=== PATIENT | male | born 1975 | race Caucasian/White ===

== ENCOUNTER 2020-12-16 22:21 | Observation (INO) ==
[2020-12-16] MEDS ORDERED: 0.9 % Sodium Chloride 1,000 ML IVC ONE (22:47)
[2020-12-16 23:05] LABS: Basophils # 0.1 K/mcL (0.0-0.2); Eosinophils # 0.2 K/mcL (0.0-0.6); Eosinophils % 1.6 %; Hemoglobin 15.2 g/dL (12.9-16.9); Immature Granulocytes % 0.4 % (0-4); Lymphocytes # 4.4 K/mcL (0.6-4.6); Lymphocytes % 40.5 %; Mean Corpuscular HGB Conc 33.8 g/dL (31.6-35.5); Mean Corpuscular Hemoglobin 35.3 pg (28.0-33.3); Mean Corpuscular Volume 104.4 fL (83.0-100.0); Mean Platelet Volume 9.4 fL (9.4-12.4); Monocytes # 0.8 K/mcL (0.0-1.3); Neutrophils # 5.4 K/mcL (1.6-8.9); Platelet Count 314 K/mcL (140-400); Red Blood Count 4.31 M/mcL (4.19-5.50); Red Cell Distribution Width 12.5 % (11.5-14.5); Segmented Neutrophils % 49.5 %; White Blood Count 10.8 K/mcL (4.3-11.1)
[2020-12-16 23:10] LABS: Bilirubin,Urine Negative (Negative); Blood,Urine Negative (Negative); Clarity,Urine Clear (Clear); Color,Urine Colorless (Yellow); Glucose,Urine (UA) Normal (Normal); Ketones,Urine Negative (Negative); Leukocyte Esterase,Urine Negative (Negative); Nitrite,Urine Negative (Negative); Protein,Urine Negative (Neg-Trace); Specific Gravity,Urine 1.007 (1.010-1.025); Urobilinogen,Urine Normal (Normal)
[2020-12-16 23:19] LABS: Amphetamine Screen,Urine Negative ng/mL (Cutoff=1000); Barbiturate Screen,Urine Negative ng/mL (Cutoff=200); Benzodiazepines Screen,Urine Negative ng/mL (Cutoff=200); Cannabinoid Screen,Urine Negative ng/mL (Cutoff = 50); Cocaine Screen,Urine Negative ng/mL (Cutoff= 300); Opiate Screen,Urine Negative ng/mL (Cutoff=300); Phencyclidine Screen,Urine Negative ng/mL (Cutoff=25)
[2020-12-16 23:23] LABS: Estimated Average Glucose 91 mg/dl; Hemoglobin A1C 4.8 %
[2020-12-16 23:30] LABS: Acetaminophen < 10 mcg/mL (10-20); BUN/Creatinine Ratio 10 (6-26); Blood Urea Nitrogen 9 mg/dL (6-20); Calcium 9.2 mg/dL (8.6-10.3); Carbon Dioxide 24 mEq/L (23-29); Chloride 102 mEq/L (98-107); Chol/HDL Ratio 2.9 (0-4.9); Cholesterol 277 mg/dL (< 200); Ethanol 257 mg/dL (Less than 10); Glucose 141 mg/dL (70-105); HDL Cholesterol 95 mg/dL (40-59); LDL Cholesterol,Calculated 151 mg/dL (< 100); Osmolality,Calculated 295 (280-300); Potassium 3.6 mEq/L (3.5-5.1); Salicylate < 2.5 mg/dL (15.0-30.0); Sodium 142 mEq/L (136-145); Triglycerides 154 mg/dL (< 150); eGFR For African Americans > 60 (> 60); eGFR For Non-African Americans > 60 (> 60)
[2020-12-17] MEDS ORDERED: Naloxone 0.4 MG/ML INJ IVP PRN (00:21)
[2020-12-17] MEDS ORDERED: Ondansetron 4 MG/2 ML VIAL IVP PRN (00:21)
[2020-12-17] MEDS ORDERED: *HR* LORazepam 2 MG/ML VIAL IVP PRN ×3 (00:21)
[2020-12-17] MEDS ORDERED: Nicotine 2 MG GUM BC PRN (01:22)
[2020-12-17] MEDS: Thiamine (B-1) 100 MG, Folic Acid 1 MG, MVI, adult with vitamin K 10 ML in 0.9 % Sodi... IVPB SCH (01:57)
[2020-12-17] MEDS: *HR* Enoxaparin 40 MG/0.4 ML SYRINGE SQ SCH ×2 (02:04→19:55)
[2020-12-17 02:10] LABS: Basophils # 0.1 K/mcL (0.0-0.2); Eosinophils # 0.2 K/mcL (0.0-0.6); Eosinophils % 1.6 %; Hematocrit 41.2 % (37.5-50.1); Hemoglobin 13.9 g/dL (12.9-16.9); Immature Granulocytes % 0.4 % (0-4); Immature Platelets 5.4 % (1.1-6.1); Lymphocytes # 4.6 K/mcL (0.6-4.6); Lymphocytes % 45.5 %; Mean Corpuscular HGB Conc 33.7 g/dL (31.6-35.5); Mean Corpuscular Hemoglobin 35.5 pg (28.0-33.3); Mean Corpuscular Volume 105.4 fL (83.0-100.0); Mean Platelet Volume 10.3 fL (9.4-12.4); Monocytes # 0.7 K/mcL (0.0-1.3); Monocytes % 7.1 %; Neutrophils # 4.5 K/mcL (1.6-8.9); Platelet Count 229 K/mcL (140-400); Red Blood Count 3.91 M/mcL (4.19-5.50); Red Cell Distribution Width 12.6 % (11.5-14.5); Segmented Neutrophils % 44.4 %; White Blood Count 10.1 K/mcL (4.3-11.1)
[2020-12-17 02:18] LABS: INR 0.9; Prothrombin Time 10.6 Seconds (9.4-12.1)
[2020-12-17 02:22] LABS: Activated Partial Thrombo Time 25.2 Seconds (26.0-36.0)
[2020-12-17 02:23] LABS: Phosphorous 2.6 mg/dL (2.7-4.5)
[2020-12-17 02:25] LABS: Alanine Aminotransferase 41 Units/L (7-52); Albumin 4.2 g/dL (3.5-5.7); Albumin/Globulin Ratio 1.6 (1.1-2.2); Alkaline Phosphatase 70 Units/L (34-104); Aspartate Amino Transferase 38 Units/L (13-39); BUN/Creatinine Ratio 9 (6-26); Bilirubin,Direct 0.1 mg/dL (0.0-0.2); Bilirubin,Indirect 0.2 mg/dL (0.0-1.0); Bilirubin,Total 0.3 mg/dL (0.3-1.0); Blood Urea Nitrogen 7 mg/dL (6-20); Calcium 8.6 mg/dL (8.6-10.3); Carbon Dioxide 23 mEq/L (23-29); Chloride 104 mEq/L (98-107); Globulin 2.6 g/dL (2.4-3.5); Glucose 101 mg/dL (70-105); Osmolality,Calculated 288 (280-300); Potassium 3.6 mEq/L (3.5-5.1); Sodium 140 mEq/L (136-145); Total Protein 6.8 g/dL (6.4-8.9); eGFR For African Americans > 60 (> 60); eGFR For Non-African Americans > 60 (> 60)
[2020-12-17 02:30] LABS: Magnesium 2.2 mg/dL (1.6-2.6)
[2020-12-17] MEDS: Nicotine 21 MG PATCH.TD24 TD SCH (09:33)
[2020-12-17] MEDS ORDERED: Naltrexone HCl 50 MG TABLET PO SCH (11:45)
[2020-12-18] MEDS: Nicotine 21 MG PATCH.TD24 TD SCH (08:35)
[2020-12-18] MEDS: Thiamine (B-1) 100 MG, Folic Acid 1 MG, MVI, adult with vitamin K 10 ML in 0.9 % Sodi... IVPB SCH (16:51)
[2020-12-18] MEDS: *HR* Enoxaparin 40 MG/0.4 ML SYRINGE SQ SCH (20:10)
[2020-12-19] MEDS: Nicotine 21 MG PATCH.TD24 TD SCH (08:35)
[2020-12-19] MEDS: Thiamine (B-1) 100 MG, Folic Acid 1 MG, MVI, adult with vitamin K 10 ML in 0.9 % Sodi... IVPB SCH (17:00)
[2020-12-19] MEDS: *HR* Enoxaparin 40 MG/0.4 ML SYRINGE SQ SCH (20:31)
[2020-12-20] MEDS: Nicotine 21 MG PATCH.TD24 TD SCH (09:27)
[2020-12-21] MEDS: *HR* Enoxaparin 40 MG/0.4 ML SYRINGE SQ SCH (05:20)
[2020-12-21] MEDS: Nicotine 21 MG PATCH.TD24 TD SCH (08:38)
[2020-12-21 10:36] VITALS: BP 129/89
== END 2020-12-21 14:37 ==
LOC: EMEROOARM 22:21 → 3BNU 22:21 → SUATTDRO 12-17 00:12 → 3BNU 12-17 00:45
PROVIDERS: ADMIT Family Medicine; ATTEND Registered Nurse

== ENCOUNTER 2020-12-21 14:29 | Inpatient (IN) ==
[2020-12-21] MEDS ORDERED: *HR* LORazepam 1 MG TABLET PO PRN (14:34)
[2020-12-21] MEDS ORDERED: *HR* LORazepam 2 MG/ML VIAL IM PRN (14:34)
[2020-12-21] MEDS ORDERED: Mag Hydrox/Al Hydrox/Simeth 30 ML UDC PO PRN (14:34)
[2020-12-21] MEDS ORDERED: Haloperidol Lactate 5 MG/ML VIAL IM PRN (14:34)
[2020-12-21] MEDS ORDERED: MOM Conc 10 ML UD.LIQ PO PRN (14:34)
[2020-12-21] MEDS ORDERED: haloperidoL 5 MG TABLET PO PRN (14:34)
[2020-12-21] MEDS: hydrOXYzine pamoate 25 MG CAPSULE PO PRN ×2 (16:07→20:11)
[2020-12-21] MEDS: Acetaminophen 325 MG TABLET PO PRN (20:10)
[2020-12-21] MEDS: traZODone 50 MG TABLET PO PRN (20:11)
[2020-12-22] MEDS: hydrOXYzine pamoate 25 MG CAPSULE PO PRN ×2 (10:04→18:15)
[2020-12-22] MEDS: Nicotine 21 MG PATCH.TD24 TD SCH (10:04)
[2020-12-22] MEDS: Folic Acid 1 MG TABLET PO SCH (11:18)
[2020-12-22] MEDS: Thiamine (B-1) 100 MG TABLET PO SCH (11:18)
[2020-12-22] MEDS: traZODone 50 MG TABLET PO PRN (21:42)
[2020-12-23] MEDS: hydrOXYzine pamoate 25 MG CAPSULE PO PRN ×4 (00:56→20:05)
[2020-12-23] MEDS: Thiamine (B-1) 100 MG TABLET PO SCH (09:07)
[2020-12-23] MEDS: Nicotine 21 MG PATCH.TD24 TD SCH (09:08)
[2020-12-23] MEDS: Folic Acid 1 MG TABLET PO SCH (09:08)
[2020-12-23] MEDS: Naltrexone HCl 50 MG TABLET PO SCH (15:25)
[2020-12-23] MEDS: traZODone 50 MG TABLET PO SCH (20:03)
[2020-12-23] MEDS: Acetaminophen 325 MG TABLET PO PRN (20:04)
[2020-12-24] MEDS: Folic Acid 1 MG TABLET PO SCH (08:02)
[2020-12-24] MEDS: Nicotine 21 MG PATCH.TD24 TD SCH (08:03)
[2020-12-24] MEDS: Naltrexone HCl 50 MG TABLET PO SCH (08:03)
[2020-12-24] MEDS: Thiamine (B-1) 100 MG TABLET PO SCH (08:03)
[2020-12-24] MEDS: hydrOXYzine pamoate 25 MG CAPSULE PO PRN ×3 (08:09→18:12)
[2020-12-24 17:47] LABS: Adenovirus Not Detected (Not Detect); Coronavirus 229E Not Detected (Not Detect); Coronavirus HKU1 Not Detected (Not Detect); Coronavirus NL63 Not Detected (Not Detect); Coronavirus OC43 Not Detected (Not Detect); Human Metapneumovirus Not Detected (Not Detect); Human Rhinovirus/Enterovirus Not Detected (Not Detect); Influenza A Subtype 2009 H1 Not Detected (Not Detect); Influenza B Not Detected (Not Detect); Parainfluenza Virus 1 Not Detected (Not Detect); SARS-CoV-2 Not Detected (Not Detect)
[2020-12-24 17:48] LABS: Bordetella Pertussis Not Detected (Not Detect); Chlamydophila pneumoniae Not Detected (Not Detect); Mycoplasma pneumoniae Not Detected (Not Detect); Parainfluenza Virus 2 Not Detected (Not Detect); Parainfluenza Virus 3 Not Detected (Not Detect); Parainfluenza Virus 4 Not Detected (Not Detect); Respiratory Syncytial Virus Not Detected (Not Detect)
[2020-12-24] MEDS: traZODone 50 MG TABLET PO SCH (20:12)
[2020-12-25] MEDS: hydrOXYzine pamoate 25 MG CAPSULE PO PRN ×2 (07:11→12:01)
[2020-12-25] MEDS: Nicotine 21 MG PATCH.TD24 TD SCH (08:09)
[2020-12-25] MEDS: Naltrexone HCl 50 MG TABLET PO SCH (08:10)
[2020-12-25] MEDS: Thiamine (B-1) 100 MG TABLET PO SCH (08:12)
[2020-12-25] MEDS: Folic Acid 1 MG TABLET PO SCH (08:21)
[2020-12-25] MEDS: traZODone 50 MG TABLET PO SCH (20:22)
[2020-12-26] MEDS: hydrOXYzine pamoate 25 MG CAPSULE PO PRN ×3 (07:31→18:05)
[2020-12-26] MEDS: Naltrexone HCl 50 MG TABLET PO SCH (08:48)
[2020-12-26] MEDS: Folic Acid 1 MG TABLET PO SCH (08:49)
[2020-12-26] MEDS: Thiamine (B-1) 100 MG TABLET PO SCH (08:49)
[2020-12-26] MEDS: Nicotine 21 MG PATCH.TD24 TD SCH (08:50)
[2020-12-26] MEDS: traZODone 50 MG TABLET PO SCH (20:04)
[2020-12-27] MEDS: Folic Acid 1 MG TABLET PO SCH (08:14)
[2020-12-27] MEDS: Thiamine (B-1) 100 MG TABLET PO SCH (08:15)
[2020-12-27] MEDS: Naltrexone HCl 50 MG TABLET PO SCH (08:15)
[2020-12-27] MEDS: hydrOXYzine pamoate 25 MG CAPSULE PO PRN ×2 (08:15→13:33)
[2020-12-27] MEDS: Nicotine 21 MG PATCH.TD24 TD SCH (08:17)
[2020-12-27 09:23] VITALS: BP 120/85
== END 2020-12-27 13:55 | DRG 751 ==
LOC: 1ANU 14:29
PROVIDERS: ADMIT Psychiatry & Neurology Psychiatry; ATTEND Psychiatry & Neurology Psychiatry